=== PATIENT | male | born 1960 | race Caucasian/White ===

== ENCOUNTER 2018-10-11 13:17 | Observation (INO) | payer MEDICARE ==
--- NOTE | 2018-10-11 14:37 | ERPHSYRPT ---
- History of Present Illness Time Seen by Provider: 10/11/18 13:25 Source: family Exam Limitations: clinical condition Patient Subjective Stated Complaint: Pt states "My legs are swelling and they hurt really bad." Triage Nursing Assessment: Pt presented through the front, alert and oriented X 3, skin pwd Pt bilat lower extremeties +2 pitting edema noted with weeping noted on legs bilat. PT wearing a [email or web address] gown and it was noted that he was at [facility] last night and signed out AMA. PT also has lung cancer in the left lung. Physician History: 58 y/o white male with end stage lung cancer on hospice. pt and family states pt too weak to undergo further chemotx and unsure if further chemotx usefull. pt seen last pm at [place] [facility] and left AMA. pt here because family unable to care for him at home. additonally, pt, although lethargic, complains of worsening bilat leg edema and pain. sugar sampler called us and asked us to wait on intervention until she arrived and had a chance to discuss desires of pt and options. pt has a portacath in place. last dose of pain medication was at 1030 Timing/Duration: gradual onset, worse Severity: moderate Associated Symptoms: malaise, other (lethargic bilat lower leg swelling, weeping and pain) Allergies/Adverse Reactions: No Known Drug Allergies Allergy (Unverified 10/11/18 13:25) Home Medications: Albuterol Common Canister [Proventil Common Canister] 1 puff IH DAILY [History] Apixaban [Eliquis] 5 mg PO DAILY 10/11/18 [History] Esomeprazole Magnesium [Nexium] 40 mg PO DAILY 10/11/18 [History] Fenofibrate Nanocrystallized [Fenofibrate] 145 mg PO DAILY 10/11/18 [History] Metformin HCl [Fortamet] 500 mg PO DAILY 10/11/18 [History] Metoprolol Tartrate [Lopressor] 100 mg PO DAILY 10/11/18 [History] Hx Tetanus, Diphtheria Vaccination/Date Given: Yes Hx Influenza Vaccination/Date Given: Yes Hx Pneumococcal Vaccination/Date Given: Yes Immunizations Up to Date: Yes - Review of Systems Constitutional: Lethargy, Malaise, Weakness Eyes: No Symptoms Ears, Nose, & Throat: No Symptoms Respiratory: No Symptoms Cardiac: No Symptoms Abdominal/Gastrointestinal: No Symptoms Genitourinary Symptoms: No Symptoms Musculoskeletal: Other (bilat lower ext edema, swelling and weeping) Skin: Other (see above) Neurological: Lethargy Psychological: No Symptoms Endocrine: No Symptoms Hematologic/Lymphatic: No Symptoms Immunological/Allergic: No Symptoms All Other Systems: Reviewed and Negative - Past Medical History Pertinent Past Medical History: Yes Neurological History: No Pertinent History, Stroke ENT History: No Pertinent History Cardiac History: No Pertinent History, High Cholesterol, Hypertension Respiratory History: Asthma, Bronchitis, COPD, Lung Cancer, Other Endocrine Medical History: Diabetes Type II Musculoskeletal History: No Pertinent History GI Medical History: No Pertinent History History: No Pertinent History Psycho-Social History: Anxiety, Depression Male Reproductive Disorders: No Pertinent History - Past Surgical History Past Surgical History: Yes Other Surgical History: port placement - Social History Smoking Status: Former smoker Exposure to second hand smoke: No Drug Use: none Patient Lives Alone: No - Nursing Vital Signs Nursing Vital Signs: Initial Vital Signs Temperature 97.4 F 10/11/18 13:17 Pulse Rate 91 H 10/11/18 13:17 Respiratory Rate 20 10/11/18 13:17 Blood Pressure 93/65 10/11/18 13:17 O2 Sat by Pulse Oximetry 95 10/11/18 13:17 Pain Scale Pain Intensity 5 - Physical Exam General Appearance: moderate distress, lethargy Eye Exam: PERRL/EOMI, eyes nml inspection Ears, Nose, Throat Exam: normal ENT inspection, moist mucous membranes Neck Exam: normal inspection, non-tender, supple, full range of motion Respiratory Exam: normal breath sounds, lungs clear, airway intact, No chest tenderness, No respiratory distress Cardiovascular Exam: regular rate/rhythm, normal heart sounds, normal peripheral pulses Gastrointestinal/Abdomen Exam: soft, normal bowel sounds, No tenderness Rectal Exam: not done Back Exam: normal inspection, normal range of motion, No CVA tenderness, No vertebral tenderness Extremity Exam: pedal edema, swelling, tenderness, other (bilat lower ext with sig swelling to knees. chronic open left lateral surgical wound. active weeping bilat lymphedema. ) Neurologic Exam: confusion (lethargic) Skin Exam: other (see above) SpO2 Interpretation: normal SpO2: 95 O2 Delivery: Room Air Ordered Tests: Active Orders 24 hr Category Date Time Status IV Insertion STAT Care 10/11/18 14:51 Active CBC W DIFF Stat Lab 10/11/18 15:00 Completed CMP Stat Lab 10/11/18 15:00 Completed Manual Differential NC Stat Lab 10/11/18 15:00 Completed Transfer Order Routine Transfer 10/11/18 Ordered Medication Summary Discontinued Medications Generic Name Dose Route Start Last Admin Trade Name Shakaq PRN Reason Stop Dose Admin Hydromorphone HCl 1 mg 10/11/18 14:55 10/11/18 15:07 Hydromorphone 1 Mg/Ml Ampule IV 10/11/18 14:56 1 mg STAT ONE Administration Hydromorphone HCl Confirm 10/11/18 15:06 Hydromorphone 1 Mg/Ml Ampule Administered 10/11/18 15:07 Dose 1 mg .ROUTE .STK-MED ONE Ondansetron HCl 4 mg 10/11/18 14:51 10/11/18 15:07 Zofran 4 Mg/2 Ml Vial IV 10/11/18 14:52 4 mg STAT ONE Administration Ondansetron HCl Confirm 10/11/18 15:05 Zofran 4 Mg/2 Ml Vial Administered 10/11/18 15:06 Dose 4 mg .ROUTE .STK-MED ONE Lab/Rad Data: Laboratory Result Diagrams 10/11/18 15:00 10/11/18 15:00 Laboratory Results 10/11/18 10/11/18 Range/Units 15:00 15:00 WBC 28.8 H* (4.0-10.5) K/mm3 RBC 3.98 L (4.1-5.6) M/mm3 Hgb 12.7 (12.5-18.0) gm/dl Hct 38.3 L (42-50) % MCV 96.2 (78-100) fl MCH 31.9 (26-32) pg MCHC 33.2 (32-36) g/dl RDW 21.0 H (11.5-14.0) % Plt Count 218 (150-450) K/mm3 MPV 10.3 H (6-9.5) fl Gran % 87.5 H (36.0-66.0) % Eos # (Auto) 1.07 H (0-0.5) Absolute Lymphs (auto) 0.92 L (1.0-4.6) Absolute Monos (auto) 1.60 H (0.0-1.3) Lymphocytes % 3.2 L (24.0-44.0) % Monocytes % 5.5 (0.0-12.0) % Eosinophils % 3.7 (0.00-5.0) % Basophils % 0.1 (0.0-0.4) % Absolute Granulocytes 25.20 H (1.4-6.9) Segmented Neutrophils 90 H (36.-66.) % Band Neutrophils 5 H (0.0-2.0) % Lymphocytes (Manual) 2 L (24-44) % Monocytes (Manual) 1 (0.0-12.0) % Eosinophils (Manual) 2 (0.00-3.0) % Basophils # 0.04 (0-0.4) Platelet Estimate NORMAL (NORMAL) RBC Morphology ABNORMAL Poikilocytosis 1+ Anisocytosis 1+ Sodium 130 L (137-145) mmol/L Potassium 3.8 (3.5-5.1) mmol/L Chloride 92 L (98-107) mmol/L Carbon Dioxide 29 (22-30) mmol/L Anion Gap 13.2 (5-15) MEQ/L BUN 20 (9-20) mg/dL Creatinine 0.38 L (0.66-1.25) mg/dL Estimated GFR > 60.0 ML/MIN Glucose 110 H (74-106) mg/dL Calcium 8.9 (8.4-10.2) mg/dL Total Bilirubin 0.70 (0.2-1.3) mg/dL AST 36 (17-59) U/L ALT 73 H (0-50) U/L Alkaline Phosphatase 91 (38-126) U/L Serum Total Protein 6.3 (6.3-8.2) g/dL Albumin 3.7 (3.5-5.0) g/dL - Progress Progress: improved Progress Note: 10/11/18 14:58 Eber in utilization review to d/w Chandrakant at [facility] about direct admission into their facility. 10/11/18 19:[address] pizarro. reviewed pt hx, condition,lab results. dr. pizarro accepts pt for placement in observation. pt has decided to continue DNR status. Discussed with : Manuel Counseled pt/family regarding: lab results, diagnosis - Departure Departure Disposition: Home Clinical Impression: Lymphedema, Leukocytosis, Lung cancer Condition: Fair Critical Care Time: No Referrals: HOSPICE,ASYA [Primary Care Provider] -
[2018-10-11] MEDS ORDERED: Zofran 4 MG/2 ML VIAL IV ONE (14:51)
[2018-10-11] MEDS ORDERED: Hydromorphone 1 mg/ml Ampule IV ONE ×2 (14:55→19:20)
[2018-10-11] MEDS ORDERED: Zofran 4 MG/2 ML VIAL ONE (15:05)
[2018-10-11] MEDS ORDERED: Hydromorphone 1 mg/ml Ampule ONE ×2 (15:06→19:24)
[2018-10-11 15:11] LABS: BASOPHIL % 0.1 % (0.0-0.4); Basophil (Absolute #) 0.04 (0-0.4); Eosinophil % 3.7 % (0.00-5.0); Eosinophil (Absolute #) 1.07 (0-0.5); Granulocytes % 87.5 % (36.0-66.0); Hematocrit 38.3 % (42-50); Hemoglobin 12.7 gm/dl (12.5-18.0); Lymphocyte (Absolute #) 0.92 (1.0-4.6); Lymphocytes % 3.2 % (24.0-44.0); Mean Cell Volume 96.2 fl (78-100); Mean Corpuscular Hemoglobin 31.9 pg (26-32); Mean Corpuscular Hgb Concent. 33.2 g/dl (32-36); Mean Platelet Volume 10.3 fl (6-9.5); Monocytes % 5.5 % (0.0-12.0); Platelet Count 218 K/mm3 (150-450); Red Blood Count 3.98 M/mm3 (4.1-5.6)
[2018-10-11 15:16] LABS: White Blood Count 28.8 K/mm3 (4.0-10.5)
[2018-10-11 15:27] LABS: ALBUMIN 3.7 g/dL (3.5-5.0); ALKALINE PHOSPHATASE 91 U/L (38-126); ANION GAP 13.2 MEQ/L (5-15); BLOOD UREA NITROGEN 20 mg/dL (9-20); CHLORIDE 92 mmol/L (98-107); Calcium 8.9 mg/dL (8.4-10.2); Carbon Dioxide 29 mmol/L (22-30); Creatinine 1 0.38 mg/dL (0.66-1.25); Glucose 110 mg/dL (74-106); Potassium 3.8 mmol/L (3.5-5.1); SGOT/AST 36 U/L (17-59); SGPT/ALT 73 U/L (0-50); SODIUM 130 mmol/L (137-145); Total Protein 6.3 g/dL (6.3-8.2)
[2018-10-11 15:36] LABS: BAND 5 % (0.0-2.0); Eosinophil 2 % (0.00-3.0); Lymphocytes 2 % (24-44); Monocyte 1 % (0.0-12.0); Neutrophils 90 % (36.-66.); Total Cells Counted 100
[2018-10-11 15:38] LABS: ANISOCYTOSIS 1+; Platelet Estimate NORMAL (NORMAL); Poikilocytosis 1+
[2018-10-11] MEDS ORDERED: Zofran 4 MG/2 ML VIAL IV PRN (19:55)
[2018-10-11] MEDS ORDERED: Hydromorphone 1 mg/ml Ampule IV PRN (19:55)
[2018-10-11] MEDS ORDERED: TYLENOL 325 MG PO PRN (19:55)
[2018-10-11] MEDS ORDERED: ROCEPHIN 1 Gm-D5w 50 ml Bag** 1 G/50 ML IVPB IV ONE (21:34)
[2018-10-11] MEDS: Sodium Chloride 0.9% 1000 ML 1,000 ML IV SCH (21:37)
[2018-10-11] MEDS: ROCEPHIN 1 Gm-D5w 50 ml Bag** 1 G/50 ML IVPB IV SCH (21:38)
[2018-10-11] MEDS ORDERED: Ativan 2 MG/1 ML VIAL IV PRN (22:31)
[2018-10-11] MEDS ORDERED: ZOCOR 20MG PO SCH (22:35)
[2018-10-11] MEDS ORDERED: Tricor 145 MG PO SCH (23:01)
[2018-10-11] MEDS ORDERED: DILAUDID 2 MG INJECTION ONE (23:18)
[2018-10-11] MEDS: ELIQUIS 2.5 MG TABLET PO SCH (23:35)
[2018-10-11] MEDS: Lopressor 50 MG PO SCH (23:36)
[2018-10-11] MEDS: Colace 100 MG PO SCH (23:36)
[2018-10-12] MEDS ORDERED: DILAUDID 2 MG INJECTION ONE ×3 (02:23→06:59)
[2018-10-12] MEDS: Hydromorphone 1 mg/ml Ampule IV PRN ×3 (02:25→07:04)
[2018-10-12 04:47] LABS: Hematocrit 38.6 % (42-50); Hemoglobin 12.5 gm/dl (12.5-18.0); Mean Cell Volume 97.5 fl (78-100); Mean Corpuscular Hgb Concent. 32.4 g/dl (32-36); Platelet Count 195 K/mm3 (150-450); Red Blood Count 3.96 M/mm3 (4.1-5.6); Red Cell Distribution Width 21.1 % (11.5-14.0)
[2018-10-12 04:48] LABS: Mean Corpuscular Hemoglobin 31.5 pg (26-32); White Blood Count 25.6 K/mm3 (4.0-10.5)
[2018-10-12 04:54] LABS: ANION GAP 12.4 MEQ/L (5-15); BLOOD UREA NITROGEN 17 mg/dL (9-20); CHLORIDE 95 mmol/L (98-107); Calcium 8.6 mg/dL (8.4-10.2); Carbon Dioxide 30 mmol/L (22-30); Creatinine 1 0.52 mg/dL (0.66-1.25); Glucose 118 mg/dL (74-106); Potassium 4.2 mmol/L (3.5-5.1); SODIUM 133 mmol/L (137-145)
[2018-10-12 06:34] LABS: BAND 4 % (0.0-2.0); Eosinophil 1 % (0.00-3.0); Lymphocytes 10 % (24-44); Monocyte 3 % (0.0-12.0); Neutrophils 82 % (36.-66.); Total Cells Counted 100
[2018-10-12 06:35] LABS: Platelet Estimate NORMAL (NORMAL)
[2018-10-12] MEDS ORDERED: Advair Hfa 115/21 Common canister IH SCH (07:00)
[2018-10-12] MEDS: PROVENTIL COMMON CANISTER IH SCH ×2 (07:14→11:20)
[2018-10-12] MEDS: Sodium Chloride 0.9% 1000 ML 1,000 ML IV SCH (08:40)
--- NOTE | 2018-10-12 08:50 | PCM.SSS ---
History of Present Illness - Chief Complaint Chief Complaint: lymphedema History of Present Illness: is a 58 year old male with end stage lung cancer who has been on hospice and in and out of [facility] over the last week, his family was trying to sit with him but felt he was overly sedated and complained of pain and weeping from bilateral legs and became unable to function. His son feels as though they need more help in caring for him in order to keep him comfortable. - Review of Systems Constitutional: No Fever, No Chills Respiratory: No Cough, No Short Of Breath Cardiac: No Chest Pain, No Edema, No Syncope Abdominal/Gastrointestinal: No Abdominal Pain, No Nausea, No Vomiting, No Diarrhea Genitourinary Symptoms: No Dysuria Skin: No Rash Medications & Allergies Home Medications: Home Medication List Albuterol Common Canister [Proventil Common Canister] 1 puff IH DAILY [History Confirmed 10/11/18] Albuterol Sulfate [Proair Respiclick] 90 mcg IH QID 10/11/18 [History Confirmed 10/11/18] Apixaban [Eliquis] 5 mg PO BID 10/11/18 [History Confirmed 10/11/18] Aspirin EC 81 mg [Ecotrin 81 mg] 81 mg PO DAILY 10/11/18 [History Confirmed 10/11/18] Docusate Sodium 100 mg [Colace 100 MG] 100 mg PO BID 10/11/18 [History Confirmed 10/11/18] Esomeprazole Magnesium [Nexium] 40 mg PO DAILY 10/11/18 [History Confirmed 10/11] Fenofibrate Nanocrystallized [Fenofibrate] 145 mg PO QHS 10/11/18 [History Confirmed 10/11/18] Folic Acid 1 mg [Folate 1 mg] 1 mg PO DAILY 10/11/18 [History Confirmed ] Furosemide 40 mg [Lasix 40 MG] 40 mg PO DAILY 10/11/18 [History Confirmed 10/11/18] Lorazepam 2 mg/1 ml [Ativan 2 MG/1 ML VIAL] 1 mg IV Q4HPRN PRN 10/11/18 [ History Confirmed 10/11/18] Magnesium Oxide 400 mg [Mag-Ox 400] 400 mg PO DAILY 10/11/18 [History Confirmed 10/11/18] Metformin HCl [Fortamet] 500 mg PO DAILY 10/11/18 [History Confirmed 10/11/18] Metoprolol Tartrate [Lopressor] 100 mg PO BID 10/11/18 [History Confirmed ] Morphine 10 mg Inj [Morphine Sulfate 10 mg/ml] 15 mg IV Q3H/PRN PRN [History Confirmed 10/11/18] Oxycodone HCl/Acetaminophen [Percocet 10-325 mg Tablet] 1 each PO Q4H 10/11/18 [ History Confirmed 10/11/18] Potassium Chloride 10 Meq Tab* [Klor Con 10 MEQ] 20 meq PO DAILY 10/11/18 [ History Confirmed 10/11/18] Rosuvastatin Calcium [Crestor] 10 mg PO QHS 10/11/18 [History Confirmed 10/11/18 ] Tamsulosin HCl 0.4 mg [Flomax 0.4 MG] 0.4 mg PO DAILY 10/11/18 [History Confirmed 10/11/18] dilTIAZem HCl [Diltiazem ER] 240 mg PO DAILY 10/11/18 [History Confirmed ] Allergies/Adverse Reactions: Allergies Allergy/AdvReac Type Severity Reaction Status Date / Time No Known Drug Allergies Allergy Unverified 10/11/18 13:25 - Past Medical History Past Medical History: Yes Neurological History: No Pertinent History, Stroke ENT History: No Pertinent History Cardiac History: No Pertinent History, High Cholesterol, Hypertension Respiratory History: Asthma, Bronchitis, COPD, Lung Cancer, Other Endocrine Medical History: Diabetes Type II Musculoskelatal History: No Pertinent History GI Medical History: No Pertinent History History: No Pertinent History Pyscho-Social History: Anxiety, Depression Male Reproductive Disorders: No Pertinent History - Past Surgical History Past Surgical History: Yes Other Surgical History: port placement - Social History Smoking Status: Former smoker Exposure to second hand smoke: No Alcohol: None Drug Use: none - Physical Exam Vital Signs: Vital Signs - 24 hr Temp Pulse Resp BP Pulse Ox 10/12/18 08:00 97.1 F 104 H 16 92/64 94 L 10/12/18 07:23 80 18 98 10/12/18 04:26 97.9 F 78 20 93/57 97 10/12/18 00:25 97.5 F 119 H 22 113/56 96 10/11/18 23:35 95 10/11/18 23:30 97.3 F 95 H 20 120/88 100 10/11/18 19:16 95 10/11/18 18:20 130 H 18 92/80 95 10/11/18 17:30 118 H 18 95 10/11/18 16:40 122 H 16 95 10/11/18 15:50 118 H 113/73 95 10/11/18 15:40 130 H 20 113/73 10/11/18 14:57 110 H 22 113/73 97 10/11/18 14:07 136 H 116/83 98 10/11/18 13:17 97.4 F 91 H 20 93/65 95 Oxygen-Last 24 hours O2 Percentage 3 Liters = 32% O2 Percentage 3 Liters = 32% O2 Percentage 3 Liters = 32% O2 Percentage 2 Liters = 28% O2 Percentage 2 Liters = 28% O2 Percentage 2 Liters = 28% Oxygen Flowrate (L/min)-RT 3 General Appearance: no apparent distress, alert Respiratory Exam: crackles/rales, rhonchi, No respiratory distress Cardiovascular Exam: regular rate/rhythm, normal heart sounds, normal peripheral pulses Gastrointestinal/Abdomen Exam: soft, normal bowel sounds, No tenderness, No mass Extremity Exam: other (3+ edema BLE with weeping) Skin Exam: normal color, warm, dry, No rash Wound Assessment: Skin/Wound Assessment Wound/Incision Assessment Start: 10/12/18 01: 23 Text: Status: Active Freq: Q6H Protocol: Document 10/12/18 00:00 AR (Rec: 10/12/18 07:01 AR [id number]) Wound/Incision Assessment Right Lower Calf Wound Assessment Admission Wound Type blisters Wound Bed Greatest Portion Red (Granulation) Right Foot Wound Assessment Admission Wound Type Skin Tear Drainage Amount Minimal Length (cm) (cm) 3 Width (cm) (cm) 1 Wound Bed Greatest Portion Red (Granulation) Comment See pictures in chart Left Lower Medial Calf Wound Assessment Admission Wound Type chronic surgical wound Drainage Amount Moderate Drainage Description Sanguineous Length (cm) (cm) 18 Width (cm) (cm) 4 Wound Bed Greatest Portion Red (Granulation) Comment see pictures in chart, PT to address Left Lower Lateral Calf Wound Assessment Admission Wound Type chronic surgical wound Dressing Status Changed Length (cm) (cm) 20 Width (cm) (cm) 4 Wound Bed Greatest Portion Red (Granulation) Comment See pictures in chart, PT to address Left Foot Wound Assessment Admission Wound Type Blisters Drainage Amount Minimal General Appearance Reddened Surrounding Tissue [place] Comment see pictures in chart, PT to address Wound Photo Photo Taken Yes Date: 10/12/18 Time: 00:00 Results - Labs Lab/Micro Results: Lab Results-Last 24 Hours 10/11/18 10/11/18 10/12/18 Range/Units 15:00 15:00 04:43 WBC 28.8 H* 25.6 H* (4.0-10.5) K/mm3 RBC 3.98 L 3.96 L (4.1-5.6) M/mm3 Hgb 12.7 12.5 (12.5-18.0) gm/dl Hct 38.3 L 38.6 L (42-50) % MCV 96.2 97.5 (78-100) fl MCH 31.9 31.5 (26-32) pg MCHC 33.2 32.4 (32-36) g/dl RDW 21.0 H 21.1 H (11.5-14.0) % Plt Count 218 195 (150-450) K/mm3 MPV 10.3 H 10.0 H (6-9.5) fl Gran % 87.5 H (36.0-66.0) % Eos # (Auto) 1.07 H (0-0.5) Absolute Lymphs (auto) 0.92 L (1.0-4.6) Absolute Monos (auto) 1.60 H (0.0-1.3) Lymphocytes % 3.2 L (24.0-44.0) % Monocytes % 5.5 (0.0-12.0) % Eosinophils % 3.7 (0.00-5.0) % Basophils % 0.1 (0.0-0.4) % Absolute Granulocytes 25.20 H (1.4-6.9) Segmented Neutrophils 90 H 82 H (36.-66.) % Band Neutrophils 5 H 4 H (0.0-2.0) % Lymphocytes (Manual) 2 L 10 L (24-44) % Monocytes (Manual) 1 3 (0.0-12.0) % Eosinophils (Manual) 2 1 (0.00-3.0) % Basophils # 0.04 (0-0.4) Platelet Estimate NORMAL NORMAL (NORMAL) RBC Morphology ABNORMAL NORMAL Poikilocytosis 1+ Anisocytosis 1+ Sodium 130 L (137-145) mmol/L Potassium 3.8 (3.5-5.1) mmol/L Chloride 92 L (98-107) mmol/L Carbon Dioxide 29 (22-30) mmol/L Anion Gap 13.2 (5-15) MEQ/L BUN 20 (9-20) mg/dL Creatinine 0.38 L (0.66-1.25) mg/dL Estimated GFR > 60.0 ML/MIN Glucose 110 H (74-106) mg/dL Calcium 8.9 (8.4-10.2) mg/dL Total Bilirubin 0.70 (0.2-1.3) mg/dL AST 36 (17-59) U/L ALT 73 H (0-50) U/L Alkaline Phosphatase 91 (38-126) U/L Serum Total Protein 6.3 (6.3-8.2) g/dL Albumin 3.7 (3.5-5.0) g/dL Prealbumin (17.6-36.0) mg/dL 10/12/18 10/12/18 Range/Units 04:43 04:43 WBC (4.0-10.5) K/mm3 RBC (4.1-5.6) M/mm3 Hgb (12.5-18.0) gm/dl Hct (42-50) % MCV (78-100) fl MCH (26-32) pg MCHC (32-36) g/dl RDW (11.5-14.0) % Plt Count (150-450) K/mm3 MPV (6-9.5) fl Gran % (36.0-66.0) % Eos # (Auto) (0-0.5) Absolute Lymphs (auto) (1.0-4.6) Absolute Monos (auto) (0.0-1.3) Lymphocytes % (24.0-44.0) % Monocytes % (0.0-12.0) % Eosinophils % (0.00-5.0) % Basophils % (0.0-0.4) % Absolute Granulocytes (1.4-6.9) Segmented Neutrophils (36.-66.) % Band Neutrophils (0.0-2.0) % Lymphocytes (Manual) (24-44) % Monocytes (Manual) (0.0-12.0) % Eosinophils (Manual) (0.00-3.0) % Basophils # (0-0.4) Platelet Estimate (NORMAL) RBC Morphology Poikilocytosis Anisocytosis Sodium 133 L (137-145) mmol/L Potassium 4.2 (3.5-5.1) mmol/L Chloride 95 L (98-107) mmol/L Carbon Dioxide 30 (22-30) mmol/L Anion Gap 12.4 (5-15) MEQ/L BUN 17 (9-20) mg/dL Creatinine 0.52 L (0.66-1.25) mg/dL Estimated GFR > 60.0 ML/MIN Glucose 118 H (74-106) mg/dL Calcium 8.6 (8.4-10.2) mg/dL Total Bilirubin (0.2-1.3) mg/dL AST (17-59) U/L ALT (0-50) U/L Alkaline Phosphatase (38-126) U/L Serum Total Protein (6.3-8.2) g/dL Albumin (3.5-5.0) g/dL Prealbumin 17.82 (17.6-36.0) mg/dL - Other Procedures and Tests Respiratory Therapy 10/12/18 00:21 Oxygen Nasal Cannula 3 lpm 10/12/18 05:15 Respiratory Therapy Assessment DAILY Assessment/Plan (1) Lung cancer Current Visit: Yes Status: Acute Assessment & Plan: plan to send to [facility] for comfort measures/hospice continuation per family's request Code(s): C34.90 - MALIGNANT NEOPLASM OF UNSP PART OF UNSP BRONCHUS OR LUNG (2) Lymphedema Current Visit: Yes Status: Acute Code(s): I89.0 - LYMPHEDEMA, NOT ELSEWHERE CLASSIFIED Hospital Summary - Vitals & Intake/Output Vital Signs: Vital Signs Temperature 97.1 F 10/12/18 08:00 Pulse Rate 104 H 10/12/18 08:00 Respiratory Rate 16 10/12/18 08:00 Blood Pressure 92/64 10/12/18 08:00 O2 Sat by Pulse Oximetry 94 L 10/12/18 08:00 Oxygen-Last Documented O2 Percentage 3 Liters = 32% Intake & Output: Intake & Output 10/09/18 10/10/18 10/11/18 10/12/18 11:59 11:59 11:59 11:59 Intake Total 1386 Balance 1386 Weight 79.1 kg - Lab Result Diagrams: 10/12/18 04:43 10/12/18 04:43 Lab Results-Last 24 Hrs: Lab Results-Last 24 Hours 10/11/18 10/11/18 10/12/18 Range/Units 15:00 15:00 04:43 WBC 28.8 H* 25.6 H* (4.0-10.5) K/mm3 RBC 3.98 L 3.96 L (4.1-5.6) M/mm3 Hgb 12.7 12.5 (12.5-18.0) gm/dl Hct 38.3 L 38.6 L (42-50) % MCV 96.2 97.5 (78-100) fl MCH 31.9 31.5 (26-32) pg MCHC 33.2 32.4 (32-36) g/dl RDW 21.0 H 21.1 H (11.5-14.0) % Plt Count 218 195 (150-450) K/mm3 MPV 10.3 H 10.0 H (6-9.5) fl Gran % 87.5 H (36.0-66.0) % Eos # (Auto) 1.07 H (0-0.5) Absolute Lymphs (auto) 0.92 L (1.0-4.6) Absolute Monos (auto) 1.60 H (0.0-1.3) Lymphocytes % 3.2 L (24.0-44.0) % Monocytes % 5.5 (0.0-12.0) % Eosinophils % 3.7 (0.00-5.0) % Basophils % 0.1 (0.0-0.4) % Absolute Granulocytes 25.20 H (1.4-6.9) Segmented Neutrophils 90 H 82 H (36.-66.) % Band Neutrophils 5 H 4 H (0.0-2.0) % Lymphocytes (Manual) 2 L 10 L (24-44) % Monocytes (Manual) 1 3 (0.0-12.0) % Eosinophils (Manual) 2 1 (0.00-3.0) % Basophils # 0.04 (0-0.4) Platelet Estimate NORMAL NORMAL (NORMAL) RBC Morphology ABNORMAL NORMAL Poikilocytosis 1+ Anisocytosis 1+ Sodium 130 L (137-145) mmol/L Potassium 3.8 (3.5-5.1) mmol/L Chloride 92 L (98-107) mmol/L Carbon Dioxide 29 (22-30) mmol/L Anion Gap 13.2 (5-15) MEQ/L BUN 20 (9-20) mg/dL Creatinine 0.38 L (0.66-1.25) mg/dL Estimated GFR > 60.0 ML/MIN Glucose 110 H (74-106) mg/dL Calcium 8.9 (8.4-10.2) mg/dL Total Bilirubin 0.70 (0.2-1.3) mg/dL AST 36 (17-59) U/L ALT 73 H (0-50) U/L Alkaline Phosphatase 91 (38-126) U/L Serum Total Protein 6.3 (6.3-8.2) g/dL Albumin 3.7 (3.5-5.0) g/dL Prealbumin (17.6-36.0) mg/dL 10/12/18 10/12/18 Range/Units 04:43 04:43 WBC (4.0-10.5) K/mm3 RBC (4.1-5.6) M/mm3 Hgb (12.5-18.0) gm/dl Hct (42-50) % MCV (78-100) fl MCH (26-32) pg MCHC (32-36) g/dl RDW (11.5-14.0) % Plt Count (150-450) K/mm3 MPV (6-9.5) fl Gran % (36.0-66.0) % Eos # (Auto) (0-0.5) Absolute Lymphs (auto) (1.0-4.6) Absolute Monos (auto) (0.0-1.3) Lymphocytes % (24.0-44.0) % Monocytes % (0.0-12.0) % Eosinophils % (0.00-5.0) % Basophils % (0.0-0.4) % Absolute Granulocytes (1.4-6.9) Segmented Neutrophils (36.-66.) % Band Neutrophils (0.0-2.0) % Lymphocytes (Manual) (24-44) % Monocytes (Manual) (0.0-12.0) % Eosinophils (Manual) (0.00-3.0) % Basophils # (0-0.4) Platelet Estimate (NORMAL) RBC Morphology Poikilocytosis Anisocytosis Sodium 133 L (137-145) mmol/L Potassium 4.2 (3.5-5.1) mmol/L Chloride 95 L (98-107) mmol/L Carbon Dioxide 30 (22-30) mmol/L Anion Gap 12.4 (5-15) MEQ/L BUN 17 (9-20) mg/dL Creatinine 0.52 L (0.66-1.25) mg/dL Estimated GFR > 60.0 ML/MIN Glucose 118 H (74-106) mg/dL Calcium 8.6 (8.4-10.2) mg/dL Total Bilirubin (0.2-1.3) mg/dL AST (17-59) U/L ALT (0-50) U/L Alkaline Phosphatase (38-126) U/L Serum Total Protein (6.3-8.2) g/dL Albumin (3.5-5.0) g/dL Prealbumin 17.82 (17.6-36.0) mg/dL - Procedures and Test Procedures and Tests throughout Hospitalization: Therapy Orders & Screens 10/11/18 19:57 PT Eval & Treat ( Order) ROUTINE Reason for Eval:: WOUND CARE WRAP BILATERAL LOWER LEGS/FEET TO BELOW KNEES, KERLEX AND BRANDON WRAP Diagnosis: lymphedema 10/12/18 00:21 Oxygen Nasal Cannula 3 lpm Comment: Diagnosis: lymphedema 10/12/18 05:15 Respiratory Therapy Assessment DAILY Comment: Diagnosis: lymphedema 10/12/18 08:00 OT Screen per Nursing Assess ONCE Comment: Protocol Order Physician Instructions: Greater than 3 points order OT Admission Screening Reason For Exam: Triggered on Admission Diagnosis: lymphedema Open Wound/Cellutlitis/Pressure Ulcers: Yes Acute Fx/ORIF/Change in wt bearing status: No Severe MUSCULOSKELETAL pain: No ADL Dysfunction: Yes Acute CVA w/Hemiparesis/Hemiplegia: No Decreased Functional Mobility/Strength: Yes Sprain/Strain: No Acute Post-op Mobility Dysfunction: No Total Points: 9 PT Screen per Nursing Assess ONCE Comment: Protocol Order Physician Instructions: Greater than 3 points order PT Admission Screenin Reason For Exam: Triggered on Admission Diagnosis: lymphedema Open Wound/Cellutlitis/Pressure Ulcers: Yes Acute Fx/ORIF/Change in wt bearing status: No Severe MUSCULOSKELETAL pain: No ADL Dysfunction: Yes Acute CVA w/Hemiparesis/Hemiplegia: No Decreased Functional Mobility/Strength: Yes Sprain/Strain: No Acute Post-op Mobility Dysfunction: No Total Points: 9 RT Screen per Nursing Assess ONCE Comment: Protocol Order Physician Instructions: Greater than 3 points order RT Admission Screen Reason For Exam: Triggered on Admission Diagnosis: lymphedema Diagnosis: lymphedema Pneumonia: No Home O2: Yes Asthma: Yes CHF: No Home CPAP/BIPAP: No Home Nebs/MDI: Yes Total Points: 14 - Discharge Disposition: IN TO [facility] Condition: Poor Prescriptions: No Action Metoprolol Tartrate [Lopressor] 100 mg PO BID Metformin HCl [Fortamet] 500 mg PO DAILY Fenofibrate Nanocrystallized [Fenofibrate] 145 mg PO QHS Esomeprazole Magnesium [Nexium] 40 mg PO DAILY Apixaban [Eliquis] 5 mg PO BID Albuterol Common Canister [Proventil Common Canister] 1 puff IH DAILY Folic Acid 1 mg [Folate 1 mg] 1 mg PO DAILY Tamsulosin HCl 0.4 mg [Flomax 0.4 MG] 0.4 mg PO DAILY Aspirin EC 81 mg [Ecotrin 81 mg] 81 mg PO DAILY Docusate Sodium 100 mg [Colace 100 MG] 100 mg PO BID Furosemide 40 mg [Lasix 40 MG] 40 mg PO DAILY Lorazepam 2 mg/1 ml [Ativan 2 MG/1 ML VIAL] 1 mg IV Q4HPRN PRN PRN Reason: Anxiety dilTIAZem HCl [Diltiazem ER] 240 mg PO DAILY Rosuvastatin Calcium [Crestor] 10 mg PO QHS Potassium Chloride 10 Meq Tab* [Klor Con 10 MEQ] 20 meq PO DAILY Oxycodone HCl/Acetaminophen [Percocet 10-325 mg Tablet] 1 each PO Q4H Morphine 10 mg Inj [Morphine Sulfate 10 mg/ml] 15 mg IV Q3H/PRN PRN PRN Reason: Pain Magnesium Oxide 400 mg [Mag-Ox 400] 400 mg PO DAILY Albuterol Sulfate [Proair Respiclick] 90 mcg IH QID Follow up with: HOSPICE,ASYA [Primary Care Provider] - 1 Week
[2018-10-12] MEDS ORDERED: Flomax 0.4 MG PO SCH (10:00)
[2018-10-12] MEDS ORDERED: Lasix 40 MG PO SCH (10:00)
[2018-10-12] MEDS ORDERED: Protonix 40MG Tablet PO SCH (10:00)
[2018-10-12] MEDS ORDERED: Klor Con 10 MEQ PO SCH (10:00)
[2018-10-12] MEDS ORDERED: NON-FORMULARY ITEM (Esomeprazole Magnesium [Nexium] 40 MG) PO SCH (10:00)
[2018-10-12] MEDS: Colace 100 MG PO SCH (10:17)
[2018-10-12] MEDS: ROCEPHIN 1 Gm-D5w 50 ml Bag** 1 G/50 ML IVPB IV SCH (10:17)
[2018-10-12] MEDS: ELIQUIS 2.5 MG TABLET PO SCH (10:17)
[2018-10-12] MEDS: DILAUDID 2 MG INJECTION IV PRN ×2 (10:18→14:02)
[2018-10-12] MEDS: Lopressor 50 MG PO SCH (10:20)
[2018-10-12] MEDS: OXYCODONE-ACETAMINOPHEN 10-325 PO SCH ×2 (14:01→15:45)
[2018-10-12] MEDS ORDERED: PROVENTIL COMMON CANISTER IH SCH (15:00)
[2018-10-12 15:53] VITALS: BP 102/70; PULSE 65; O2SAT 99
== END 2018-10-12 16:10 ==
LOC: ED 13:17 → MED SURG 19:35
PROVIDERS: ADMIT Family Medicine; ATTEND Family Medicine
DX: C34.90 Malignant neoplasm of unspecified part of unspecified bronchus or lung (principal); I89.0 Lymphedema, not elsewhere classified; J44.9 Chronic obstructive pulmonary disease, unspecified; E11.9 Type 2 diabetes mellitus without complications; I10 Essential (primary) hypertension; Z79.01 Long term (current) use of anticoagulants; Z79.899 Other long term (current) drug therapy
CPT/HCPCS: 36000; 36415; 80048; 80053; 84134; 85025; 94640; 94760; 96374; 96375; 96376; 97161; 99285; G0378; J0696; J1170; J1642; J2060; J2405; A9270-GY